=== PATIENT | female | born 1975 | race African-American/Black ===

== ENCOUNTER 2017-08-02 23:37 | Emergency (ER) | payer OTHER ==
[~2017-08-02] VITALS: Ht 167.6 cm; Wt 77.0 kg
[~2017-08-02 23:37] MED LIST: FERR-89 PO
[2017-08-02 23:39] VITALS: BP 144/99
[2017-08-03 00:13] LABS: APPEARANCE,URINE CLEAR (CLEAR); BILIRUBIN,URINE NEGATIVE (NEGATIVE); GLUCOSE, URINE (UA) NEGATIVE (NEGATIVE); KETONES,URINE NEGATIVE (NEGATIVE); LEUKOCYTE ESTERASE ,URINE NEGATIVE (NEGATIVE); NITRATE,URINE NEGATIVE (NEGATIVE); OCCULT BLOOD,URINE NEGATIVE (NEGATIVE); PH,URINE 5.5 (5.0-8.0); PROTEIN,URINE NEGATIVE (NEGATIVE); UROBILINOGEN,URINE 0.2 mg/dL (<=1.0)
[2017-08-03] MEDS ORDERED: AZITHROMYCIN 250 MG TABLET PO ONE (00:15)
[2017-08-03] MEDS ORDERED: LIDOCAINE HCL/PF 1% 2 ML VIAL IM ONE (00:15)
[2017-08-03] MEDS ORDERED: CefTRIAXone SODIUM 1 GM/VIAL IM ONE (00:15)
[2017-08-03 00:17] LABS: HCG,QUAL RESULT NEGATIVE (NEGATIVE)
== END 2017-08-03 00:38 | disposition home or self-care (01) ==
LOC: EMS 23:38
DX: N76.0 Acute vaginitis (principal)
CPT/HCPCS: 81003; 84703; 87491; 87591; 96372; 99284; J0696; J3490

== ENCOUNTER 2018-03-25 16:44 | Emergency (ER) | payer BC, OTHER ==
[~2018-03-25] VITALS: Ht 167.6 cm; Wt 72.7 kg
[2018-03-25] MEDS ORDERED: IBUPROFEN 600 MG TABLET PO ONE (17:30)
[2018-03-25 18:15] VITALS: BP 135/76
== END 2018-03-25 19:06 | disposition home or self-care (01) ==
LOC: EMS 16:46
DX: M79.675 Pain in left toe(s) (principal)
CPT/HCPCS: 99284

== ENCOUNTER 2018-04-28 18:20 | Emergency (ER) | payer BC, OTHER ==
[~2018-04-28] VITALS: Ht 167.6 cm; Wt 72.7 kg
[2018-04-28 20:37] LABS: BASOPHILS % (AUTO) 1.2 % (0.0-2.0); EOSINOPHILS % (AUTO) 2.3 % (1.0-6.0); HEMATOCRIT 37.6 % (36-46); HEMOGLOBIN 12.5 g/dL (12.0-16.0); LYMPHOCYTES # (AUTO) 1.8 K/uL (1.0-4.8); LYMPHOCYTES % (AUTO) 38.7 % (22.0-44.0); MEAN CORPUSCULAR HEMOGLOBIN 29.1 pg (26.0-34.0); MEAN CORPUSCULAR HGB CONC 33.3 G/dL (31.0-37.0); MEAN CORPUSCULAR VOLUME 87 fL (80-100); MONOCYTES # (AUTO) 0.5 K/uL (0.1-1.0); MONOCYTES % (AUTO) 10.4 % (2.0-9.0); NEUTROPHILS # (AUTO) 2.2 K/uL (1.8-7.7); NEUTROPHILS % (AUTO) 47.4 % (40.0-70.0); PLATELET COUNT (AUTO) 176 K/uL (150-450); RED CELL DISTRIBUTION WIDTH 13.6 % (11.5-14.5)
[2018-04-28 20:45] LABS: ANION GAP 8 mmol/L (8-16); CARBON DIOXIDE 28 mmol/L (22-29); CHLORIDE 105 mmol/L (98-107); CREATININE 0.92 mg/dL (0.60-1.30); GLOMERULAR FILTR. RATE CALC > 60 mL/min (>60); GLUCOSE,RANDOM 96 mg/dL (70-110); POTASSIUM 4.1 mmol/L (3.5-5.1); SODIUM SERUM 141 mmol/L (136-145); UREA NITROGEN, BLOOD 6 mg/dL (7-18)
[2018-04-28 20:51] LABS: ALANINE AMINOTRANSFERASE 18 U/L (12-78); ALBUMIN 3.3 g/dL (3.4-5.0); ALKALINE PHOSPHATASE 66 U/L (46-116); ASPARTATE AMINOTRANSFERASE 16 U/L (15-37); BILIRUBIN,TOTAL 0.3 mg/dL (0.1-1.0)
[2018-04-28 22:33] VITALS: BP 140/80
== END 2018-04-28 22:35 | disposition home or self-care (01) ==
LOC: EMS 18:21
DX: R59.1 Generalized enlarged lymph nodes (principal)
CPT/HCPCS: 99285

== ENCOUNTER 2021-10-29 08:24 | Emergency (ER) | payer BC, OTHER ==
[~2021-10-29] VITALS: Ht 170.2 cm; Wt 61.4 kg
[2021-10-29] MEDS ORDERED: LIDOCAINE 5% TRANSDERMAL PATCH TD ONE (11:15)
[2021-10-29] MEDS ORDERED: KETOROLAC TROMETHAMINE 60 MG/2 ML VIAL IM ONE (11:15)
[2021-10-29 12:15] VITALS: BP 160/90
[2021-10-29] MEDS ORDERED: IBUP-2070 PO (13:03)
[2021-10-29] MEDS ORDERED: PERCT PO (13:04)
== END 2021-10-29 14:31 | disposition home or self-care (01) ==
LOC: EMS 09:22
DX: S29.012A Strain of muscle and tendon of back wall of thorax, initial encounter (principal); S16.1XXA Strain of muscle, fascia and tendon at neck level, initial encounter; Z79.899 Other long term (current) drug therapy; X50.0XXA Overexertion from strenuous movement or load, initial encounter; Y93.89 Activity, other specified; Y92.89 Other specified places as the place of occurrence of the external cause; Y99.8 Other external cause status
CPT/HCPCS: 96372; 99283; J1885

== ENCOUNTER 2024-07-25 15:49 | Emergency (ER) | payer BC, OTHER ==
[~2024-07-25] VITALS: Ht 170.2 cm; Wt 65.9 kg
[~2024-07-25 15:49] MED LIST changes: -FERR-89 PO; +FERR325T27 PO; +IBUP-1492 PO; +PERCT PO
[2024-07-25 15:53] VITALS: TEMP 100
[2024-07-25] MEDS: KETOROLAC TROMETHAMINE 60 MG/2 ML VIAL IM ONE (16:39)
[2024-07-25] MEDS: ACETAMINOPHEN 500 MG TABLET PO ONE (16:39)
[2024-07-25] MEDS: METHOCARBAMOL 500 MG TABLET PO ONE (16:40)
[2024-07-25 16:44] LABS: HEMATOCRIT 27.9 % (36-46); HEMOGLOBIN 8.5 g/dL (12.0-16.0); MEAN CORPUSCULAR HEMOGLOBIN 22.4 pg (26.0-34.0); MEAN CORPUSCULAR HGB CONC 30.4 G/dL (31.0-37.0); MEAN CORPUSCULAR VOLUME 74 fL (80-100); PLATELET COUNT (AUTO) 92 K/uL (150-450); RED BLOOD CELL COUNT(AUTO) 3.78 MIL/uL (4.00-5.20); WHITE BLOOD COUNT (AUTO) 1.6 K/uL (4.5-11.0)
[2024-07-25 16:54] LABS: ANION GAP 7 mmol/L (8-16); CALCIUM, TOTAL 7.9 mg/dL (8.8-10.5); CARBON DIOXIDE 27 mmol/L (22-29); CHLORIDE 101 mmol/L (98-107); CREATININE 0.88 mg/dL (0.60-1.30); GLOMERULAR FILTR. RATE CALC > 60 mL/min (>60); GLUCOSE,RANDOM 77 mg/dL (70-110); POTASSIUM 3.9 mmol/L (3.5-5.1); SODIUM SERUM 135 mmol/L (136-145); UREA NITROGEN, BLOOD 8 mg/dL (7-18)
[2024-07-25 17:02] LABS: CREATINE KINASE, TOTAL ONLY 160 U/L (26-192)
[2024-07-25 17:24] LABS: BAND NEUTROPHILS % (MANUAL) 0 % (0-5)
[2024-07-25 17:26] LABS: EOSINOPHILS % (MANUAL) 1 % (1-6); LYMPHOCYTES % (MANUAL) 31 % (22-44); MONOCYTES % (MANUAL) 15 % (2-9); SEGMENTED NEUTROPHILS % 53 % (40-70); TOTAL CELLS COUNTED 100
[2024-07-25 17:29] LABS: RBC MORPHOLOGY COMMENT ABNORMAL RBC MORPH
[2024-07-25 17:50] VITALS: BP 138/86; PULSE 88; RESP 16; O2SAT 98
[2024-07-25] MEDS ORDERED: METH-659 PO (19:06)
[2024-07-25] MEDS ORDERED: IBUP-1554 PO (19:06)
[2024-07-25] MEDS ORDERED: ACET-66 PO (19:06)
== END 2024-07-25 19:39 | disposition home or self-care (01) ==
LOC: EMS 15:49
DX: J06.9 Acute upper respiratory infection, unspecified (principal); R20.2 Paresthesia of skin; M79.641 Pain in right hand; M54.50 Low back pain, unspecified; D61.818 Other pancytopenia; Z79.1 Long term (current) use of non-steroidal anti-inflammatories (NSAID); Z86.2 Personal history of diseases of the blood and blood-forming organs and certain disorders involving the immune mechanism
CPT/HCPCS: 99285; 70450; 80048; 82550; 85025; 36415; 96372; J1885

== ENCOUNTER 2024-08-16 22:59 | Inpatient (IN) | payer BC, OTHER ==
[~2024-08-16] VITALS: Ht 167.6 cm; Wt 66.0 kg
[~2024-08-16 22:59] MED LIST changes: +ACET-66 PO; +IBUP-1554 PO; +METH-659 PO
[2024-08-17] LABS: HEMATOCRIT 29.1 % (36-46); MEAN CORPUSCULAR HEMOGLOBIN 23.5 pg (26.0-34.0); MEAN CORPUSCULAR VOLUME 76 fL (80-100); PLATELET COUNT (AUTO) 106 K/uL (150-450); RED BLOOD CELL COUNT(AUTO) 3.85 MIL/uL (4.00-5.20); RED CELL DISTRIBUTION WIDTH 23.9 % (11.5-14.5); WHITE BLOOD COUNT (AUTO) 1.7 K/uL (4.5-11.0)
[2024-08-17 00:17] LABS: ANION GAP 7 mmol/L (8-16); CALCIUM, TOTAL 8.4 mg/dL (8.8-10.5); CARBON DIOXIDE 26 mmol/L (22-29); CHLORIDE 104 mmol/L (98-107); GLOMERULAR FILTR. RATE CALC > 60 mL/min (>60); GLUCOSE,RANDOM 109 mg/dL (70-110); POTASSIUM 3.8 mmol/L (3.5-5.1); SODIUM SERUM 137 mmol/L (136-145); UREA NITROGEN, BLOOD 19 mg/dL (7-18)
[2024-08-17 00:23] LABS: ALANINE AMINOTRANSFERASE 17 U/L (12-78); ALBUMIN 3.3 g/dL (3.4-5.0); ALKALINE PHOSPHATASE 64 U/L (46-116); ASPARTATE AMINOTRANSFERASE 16 U/L (15-37); BILIRUBIN,TOTAL 0.2 mg/dL (0.1-1.0); TOTAL PROTEIN, SERUM 7.7 g/dL (6.4-8.2)
[2024-08-17 00:38] LABS: BAND NEUTROPHILS % (MANUAL) 0 % (0-5)
[2024-08-17 00:41] LABS: EOSINOPHILS % (MANUAL) 3 % (1-6); LYMPHOCYTES % (MANUAL) 35 % (22-44); MONOCYTES % (MANUAL) 22 % (2-9); SEGMENTED NEUTROPHILS % 40 % (40-70); TOTAL CELLS COUNTED 100
[2024-08-17 00:43] LABS: PATHOLOGY REVIEW, DIFF YES; RBC MORPHOLOGY COMMENT ABNORMAL R
[2024-08-17] MEDS: ONDANSETRON HCL 4 MG/2 ML VIAL IVP PRN (00:58)
[2024-08-17] MEDS: MORPHINE SULFATE 2 MG/ML SYRINGE IVP PRN (00:59)
[2024-08-17 01:15] LABS: LACTATE DEHYDROGENASE 168 U/L (81-234)
[2024-08-17] MEDS ORDERED: IOHEXOL 350 MG/ML 100 ML VIAL ONE (01:25)
[2024-08-17] MEDS ORDERED: SODIUM CHLORIDE 0.9% 100 ML ONE (01:25)
[2024-08-17] MEDS: ACETAMINOPHEN 325 MG TABLET PO PRN (05:24)
[2024-08-17] MEDS: DOCUSATE SODIUM 100 MG CAPSULE PO SCH (08:37)
[2024-08-17 09:01] LABS: APPEARANCE,URINE CLEAR (CLEAR); BILIRUBIN,URINE NEGATIVE (NEGATIVE); COLOR,URINE LIGHT YELLOW (YELLOW); GLUCOSE, URINE (UA) NEGATIVE (NEGATIVE); KETONES,URINE NEGATIVE (NEGATIVE); LEUKOCYTE ESTERASE ,URINE NEGATIVE (NEGATIVE); NITRATE,URINE NEGATIVE (NEGATIVE); OCCULT BLOOD,URINE NEGATIVE (NEGATIVE); PH,URINE 6.5 (5.0-8.0); PROTEIN,URINE TRACE mg/dL (NEGATIVE); UROBILINOGEN,URINE <=1.0 mg/dL (<=1.0)
[2024-08-17 09:47] LABS: SPECIFIC GRAVITIY, URINE > 1.030 (1.003-1.030)
[2024-08-17 10:17] LABS: BACTERIA,URINE None Seen /HPF (None Seen); RBC,URINE None Seen /HPF (0-2); WBC,URINE None Seen /HPF (0-5)
[2024-08-17] MEDS ORDERED: GADOTERATE MEGLUMINE 10 MMOL/20 ML VIAL IVP ONE (10:41)
[2024-08-17] MEDS: SODIUM CHLORIDE 0.9% 250 ML IV ONE (15:01)
[2024-08-17 18:30] VITALS: BP 164/92; PULSE 72; RESP 18; TEMP 98.5; O2SAT 99
[2024-08-17 19:55] VITALS: BP 153/78; PULSE 65; RESP 17; TEMP 98.7; O2SAT 100
[2024-08-18] VITALS: BP 146/85; PULSE 64; RESP 20; TEMP 98.2; O2SAT 100
[2024-08-18 04:49] VITALS: BP 142/79; PULSE 68; RESP 19; TEMP 98.5; O2SAT 100
[2024-08-18 07:31] LABS: BASOPHILS % (AUTO) 0.3 % (0.0-2.0); EOSINOPHILS % (AUTO) 0.4 % (1.0-6.0); HEMATOCRIT 29.7 % (36-46); HEMOGLOBIN 9.4 g/dL (12.0-16.0); LYMPHOCYTES # (AUTO) 0.4 K/uL (1.0-4.8); LYMPHOCYTES % (AUTO) 18.2 % (22.0-44.0); MEAN CORPUSCULAR HGB CONC 31.5 G/dL (31.0-37.0); MEAN CORPUSCULAR VOLUME 76 fL (80-100); MONOCYTES # (AUTO) 0.3 K/uL (0.1-1.0); MONOCYTES % (AUTO) 14.3 % (2.0-9.0); NEUTROPHILS # (AUTO) 1.6 K/uL (1.8-7.7); NEUTROPHILS % (AUTO) 66.8 % (40.0-70.0); PLATELET COUNT (AUTO) 95 K/uL (150-450); RED BLOOD CELL COUNT(AUTO) 3.91 MIL/uL (4.00-5.20); WHITE BLOOD COUNT (AUTO) 2.3 K/uL (4.5-11.0)
[2024-08-18 07:37] LABS: ANION GAP 5 mmol/L (8-16); CARBON DIOXIDE 27 mmol/L (22-29); CHLORIDE 102 mmol/L (98-107); CREATININE 0.79 mg/dL (0.60-1.30); GLOMERULAR FILTR. RATE CALC > 60 mL/min (>60); GLUCOSE,RANDOM 86 mg/dL (70-110); POTASSIUM 3.8 mmol/L (3.5-5.1); SODIUM SERUM 134 mmol/L (136-145); UREA NITROGEN, BLOOD 6 mg/dL (7-18)
[2024-08-18 08:00] VITALS: BP 147/74; PULSE 68; RESP 18; TEMP 97.8; O2SAT 97
[2024-08-18 12:00] VITALS: BP 144/84; PULSE 82; RESP 16; TEMP 98.4; O2SAT 98
[2024-08-18 16:00] VITALS: BP 141/85; PULSE 63; RESP 18; TEMP 98.1; O2SAT 99
[2024-08-18 20:33] VITALS: BP 141/70; PULSE 63; RESP 17; TEMP 98.1; O2SAT 100
[2024-08-19 00:01] VITALS: BP 134/75; PULSE 65; RESP 18; TEMP 97.9; O2SAT 99
[2024-08-19 05:30] VITALS: BP 130/74; PULSE 60; RESP 18; TEMP 98; O2SAT 100
[2024-08-19 09:00] VITALS: BP 127/78; PULSE 74; RESP 18; TEMP 98.3; O2SAT 100
== END 2024-08-19 12:50 | disposition home or self-care (01) | DRG 92 ==
LOC: EMS 23:00 → EDH 08-17 00:47 → 5S 08-17 18:15
PROVIDERS: ADMIT Internal Medicine; ATTEND Internal Medicine
DX: G95.29 Other cord compression (principal); C85.90 Non-Hodgkin lymphoma, unspecified, unspecified site; D61.818 Other pancytopenia; M48.02 Spinal stenosis, cervical region; G99.2 Myelopathy in diseases classified elsewhere; M54.12 Radiculopathy, cervical region; R51.9 Headache, unspecified; R29.2 Abnormal reflex; D25.9 Leiomyoma of uterus, unspecified; R32 Unspecified urinary incontinence; R59.1 Generalized enlarged lymph nodes
CPT/HCPCS: 70496; 70498; 70553; 72125; 72128; 72131; 72156; 80048; 80053; 81001; 83615; 83735; 85025; 92610; 99285; J2270; J2405; J7050